=== PATIENT | female | born 2000 | race Two or more races ===

== ENCOUNTER 2022-08-09 21:30 | Inpatient (IN) | payer OTHER ==
[~2022-08-09] VITALS: Ht 149.9 cm; Wt 56.2 kg
[2022-08-09] MEDS ORDERED: PRENATAL TABLE1 EAC1 PO (22:29)
[2022-08-09] MEDS ORDERED: DIALYVITE 800-1 EACH PO (22:30)
== END 2022-08-12 12:51 | disposition home or self-care (01) | DRG 807 ==
LOC: LDR 21:30 → OB/GYN 21:30
PROVIDERS: ADMIT Obstetrics & Gynecology; ATTEND Obstetrics & Gynecology
PROC: 10E0XZZ Delivery of Products of Conception, External Approach (ICD-10-PCS; principal; 2022-08-09)
PROC: 4A1HXCZ Monitoring of Products of Conception, Cardiac Rate, External Approach (ICD-10-PCS; 2022-08-09)
DX: O36.5930 Maternal care for other known or suspected poor fetal growth, third trimester, not applicable or unspecified (principal); Z37.0 Single live birth; Z3A.37 37 weeks gestation of pregnancy; Z20.822 Contact with and (suspected) exposure to COVID-19